=== PATIENT | male | born 1945 | race Caucasian/White ===

== ENCOUNTER → 2020-03-29 | Day surgery (SDC) | payer MEDICARE, OTHER ==
--- NOTE | 2020-03-26 12:05 | Diagnostic Imaging Report ---
TECHNIQUE: Frontal and lateral views of the chest. INDICATION: ^[id number] ^[id number] ^PRE OP COMPARISON: None. IMPRESSION: Lines and hardware: None. Heart and mediastinum: Normal cardiomediastinal silhouette. Lungs and pleura: No focal airspace consolidation. Trace pleural effusions. No pneumothorax. Soft tissues and bones: No acute bony abnormality. Signed by: Gideon Tillman MD on 03/26/2020 12:02 PM
[~2020-03-29] MED LIST: AMPICILLIN SOD 1 GM/NS 50ML 50 ML IV ONE; B&O 60MG R/S 60 MG SUPP PR ONE; DEXAMETHASONE SOD PHOS INJ 4 MG/ML VIAL ONE; FENTANYL CITRATE/PF 100MCG/2 ML INJ ONE; FUROSEMIDE INJ 10 MG/ML 4 ML VIAL ONE; GENTAMICIN 80MG/NS 100 ML 200 ML IV ONE; HYDROMORPHONE 1MG/1ML INJ ONE; IOPAMIDOL 300MG/ML 50ML INFUS..BTL IV ONE; LEVOTHYROXINE50 MCG PO; LIDOCAINE HCL 2% LOCAL INJ 5 ML SDV VIAL INJ ONE; MEPERIDINE HCL INJ 25 MG/ML VIAL ONE; MIRTAZAPINE15 MG PO; ONDANSETRON HCL INJ 2MG/ML 2ML 2 MG/ML VIAL ONE; PRAVACHOL20 MG PO; PRAVASTATIN SOD20 MG PO; PROPOFOL IV EMULSION 10 MG/ML 20 ML VIAL ONE; SEVOFLURANE INHAL SOLN 250 ML PEN BTL ONE
--- NOTE | 2020-03-29 08:23 | Diagnostic Imaging Report ---
OR Fluoroscopy: IMPRESSION: Fluoroscopy service provided in the OR. Interpretation not requested. Signed by: Raúl Hopper MD on 03/29/2020 8:20 AM
[2020-03-29 12:00] VITALS: BP 138/83
--- NOTE | 2020-03-30 10:05 | Operative Report ---
DATE OF PROCEDURE: 03/29/2020 SURGEON: Ender Jernigan MD PREOPERATIVE DIAGNOSIS: Gross hematuria for a very long time. POSTOPERATIVE DIAGNOSES: 1. Numerous tumors consistent with bladder cancer with a very large set of tumors centered at the left lateral wall. 2. Potential for left renal colic with tumors resection near the ureteral orifice. 3. Gross hematuria. OPERATIONS PERFORMED: 1. Cystourethroscopy with bilateral ureteral catheterization and retrograde ureteropyelography (separate procedure performed for gross hematuria). 2. Interpretation of retrograde ureteropyelography, no radiologist present. 3. Supervision of fluoroscopy, no radiologist present. 4. Cystourethroscopy with insertion of left indwelling ureteral stent (separate procedure performed to prevent renal colic due to resection near the ureteral orifice). 5. Cystoscopy with transurethral resection of large bladder tumor (1st stage procedure in resecting bladder tumor all over 5 cm in diameter. ANESTHESIA: General. COMPLICATIONS: None. CLINICAL SUMMARY: Uche Wick is a 74-year-old man, who has had gross hematuria for a long time. The patient's may have been going on for years; however, he does not inform his family nor his physician until recently. The patient was brought for the above procedures. CT scanning had suggested presence of a bladder tumor. The patient is aware of the risks of bleeding, infection, injury to adjacent structures, need for additional procedures and elected to proceed. OPERATIVE PROCEDURE IN DETAIL: Informed consent was verified. Uche Wick was properly identified, taken to the operating room and placed on the cystoscopy table in supine position. Anesthesia was uneventfully begun. The patient was then carefully and gently repositioned in a dorsal lithotomy position with all pressure points well padded. His genitalia were prepared and draped in usual sterile fashion. The cystoscope sheath with the visual obturator in place was atraumatically inserted into the patient's urethra. It was guided unremarkable to distal urethra through the normal sphincteric region through the prostate bed, which was significant for visually obstructing bilobar BPH. At the level of bladder neck, we could see tumor. As we went near the bladder, we saw that there was tumor circumferentially in the vicinity of the bladder neck. There was another small lesion, but there was a very large bladder tumor all over 5 cm in diameter at the left lateral wall. There was a small tumor surrounding the left ureteral orifice. An 8-Cuban catheter was used to cannulate each ureter and retrograde ureteropyelograms were performed. Interpretation of retrograde ureteropyelography contrast was instilled in retrograde fashion bilaterally. There are no tumors, no stones, no , no suspicious or projected lesions. Due to proximity of these lesions to the ureteral orifice, we felt that treating these lesions might impinge on the ureteral orifice . Therefore, the cystoscope with fluoroscopic guidance, a 7-Cuban indwelling ureteral stent was then placed, it was curled in the patient's kidney as well as the patient's bladder. The retaining sutures were removed. The resectoscope was atraumatically placed and we proceeded with performing transurethral resection of the patient's bladder tumors. We worked for exactly an hour in order to avoid the risk of hyponatremia due to irrigation with sterile water. During the resection, we were able to resect a fairly large portion of this very large bladder tumor along the left lateral wall. Pinpoint electrocautery was utilized to achieve hemostasis. All bladder tumor chips were evacuated. This was verified endoscopically. Resectoscope was then withdrawn. Sewell catheter was placed. It was irrigated to and fro to ensure it worked properly. A belladonna and opium suppository was placed revealing a 30 g prostate, smooth, nonfluctuant without any nodules. There was no evidence of the bladder tumor being fixed and at this time, the tumor was not palpable under manual examination. The patient was then uneventfully reversed from anesthesia and taken to recovery room in stable condition. There were no complications to the procedure. The patient tolerated the procedure well. Estimated blood loss was minimal. PLAN: Plans will be to see the patient in the office in a couple of weeks to remove his Sewell catheter. We will plan to review the histopathology and proceed with the plan for next step in management. Ender Jernigan MD [place]/FABIANL /[id number] cc: Larry Correa
== END | disposition home or self-care (01) ==
LOC: OR 05:22
PROVIDERS: ATTEND Urology
DX: C67.2 Malignant neoplasm of lateral wall of bladder (principal); N23 Unspecified renal colic; N40.0 Benign prostatic hyperplasia without lower urinary tract symptoms; N13.8 Other obstructive and reflux uropathy; Z01.810 Encounter for preprocedural cardiovascular examination; Z01.812 Encounter for preprocedural laboratory examination; Z01.818 Encounter for other preprocedural examination; Z11.59 Encounter for screening for other viral diseases
CPT/HCPCS: 52240; 52332; 71046; 74420; 88305; 93005; C1758; C2617; J0290; J1100; J1170; J1580; J1940; J2001; J2175; J2405; J2704; J3010; Q9967; U0002; 88304

== ENCOUNTER → 2020-05-22 | Day surgery (SDC) | payer MEDICARE ==
[2020-05-20 14:06] LABS: BASOPHILS # (AUTO) 0.1 (0.0-0.1); BASOPHILS % 0.8 % (0.0-1.0); EOSINOPHILS # (AUTO) 0.2 (0.0-0.4); EOSINOPHILS % 2.5 % (0.0-6.0); HEMATOCRIT 42.5 % (38.2-49.6); HEMOGLOBIN 13.9 g/dL (14.0-18.0); LYMPHOCYTES # (AUTO) 2.1 (1.0-3.2); LYMPHOCYTES % 32.2 % (18.0-39.1); MEAN CORPUSCULAR HEMOGLOBIN 31.2 pg (28-32); MEAN CORPUSCULAR HGB CONC 32.7 g/dL (31-35); MEAN CORPUSCULAR VOLUME 95.3 fL (81-99); MONOCYTES # (AUTO) 0.5 (0.2-0.8); MONOCYTES % 7.5 % (4.4-11.3); NEUTROPHILS # (AUTO) 3.7 (2.1-6.9); NEUTROPHILS % 56.8 % (38.7-80.0); PLATELET COUNT 174 x10e3/uL (140-360); RED BLOOD COUNT 4.46 x10e6/uL (4.3-5.7); RED CELL DISTRIBUTION WIDTH 12.9 % (11.7-14.4)
[~2020-05-22] MED LIST changes: -AMPICILLIN SOD 1 GM/NS 50ML 50 ML IV ONE; -FENTANYL CITRATE/PF 100MCG/2 ML INJ ONE; -FUROSEMIDE INJ 10 MG/ML 4 ML VIAL ONE; -GENTAMICIN 80MG/NS 100 ML 200 ML IV ONE; -HYDROMORPHONE 1MG/1ML INJ ONE; +LIDOCAINE HCL 2% JELLY 5 ML TUBE ONE; -MEPERIDINE HCL INJ 25 MG/ML VIAL ONE; +MIDAZOLAM HCL 2 MG/2 ML VIAL ONE
[2020-05-22] MEDS: CEFTRIAXONE SOD 1 GM/NS 50 ML 50 ML IV ONE (06:48)
[2020-05-22] MEDS: GENTAMICIN 80MG/NS 100 ML 100 ML IV ONE (06:49)
[2020-05-22] MEDS: MEPERIDINE HCL INJ 25 MG/ML VIAL ONE (09:11)
[2020-05-22 10:10] VITALS: BP 159/88
== END | disposition home or self-care (01) ==
LOC: OR 05:29
PROVIDERS: ATTEND Urology
DX: C67.2 Malignant neoplasm of lateral wall of bladder (principal); Z46.6 Encounter for fitting and adjustment of urinary device; N13.30 Unspecified hydronephrosis; N40.1 Benign prostatic hyperplasia with lower urinary tract symptoms; N13.8 Other obstructive and reflux uropathy; K21.9 Gastro-esophageal reflux disease without esophagitis; I45.6 Pre-excitation syndrome; F41.9 Anxiety disorder, unspecified; F32.9 Major depressive disorder, single episode, unspecified; Z01.812 Encounter for preprocedural laboratory examination; Z20.828 Contact with and (suspected) exposure to other viral communicable diseases
CPT/HCPCS: 36415; 74420; 85025; 88305; C1758; C2617; J0696; J1100; J1580; J2001; J2175; J2250; J2405; U0002